=== PATIENT | male | born 1980 | race Caucasian/White ===

== ENCOUNTER 2019-04-06 13:39 | Emergency (ER) | payer SELFPAY ==
[2019-04-06] MEDS ORDERED: ASPIRIN 81 MG TABLET, CHEWABLE PO ONE (15:00)
[2019-04-06] MEDS ORDERED: NORMAL SALINE 1000 ML 1,000 ML IV ONE (15:02)
--- NOTE | 2019-04-06 15:02 | ER Document Report ---
ED Medical Screen (RME) - General Chief Complaint: Chest Pain Stated Complaint: CHEST PAIN Time Seen by Provider: 04/06/19 14:58 Primary Care Provider: CIHNG COLLAZO MD [Primary Care Provider] - Follow up as needed Notes: Patient presents complaining of left-sided chest pain for the past 2 weeks. Patient does report some mild shortness of breath and chronic cough that he attributes to smoking. Patient complains of left arm pain for the past 2 days. hx: Chest tube, ulcers I have greeted and performed a rapid initial assessment of this patient. A comprehensive ED assessment and evaluation of the patient, analysis of test results and completion of the medical decision making process will be conducted by additional ED providers. TRAVEL OUTSIDE OF THE [place] IN LAST 30 DAYS: No - Related Data Allergies/Adverse Reactions: No Known Allergies Allergy (Verified 04/06/19 13:45) Past Medical History Psychiatric Medical History: Reports: Hx Anxiety, Hx Depression Past Surgical History: Reports: Hx Orthopedic Surgery Physical Exam - Vital signs Vitals: Temp Pulse Resp BP Pulse Ox 98.6 F 107 H 18 162/98 H 98 04/06/19 13:41 04/06/19 13:41 04/06/19 13:41 04/06/19 13:41 04/06/19 13:41 - Respiratory Respiratory status: No respiratory distress Chest status: Nontender Breath sounds: Normal Chest palpation: Normal - Cardiovascular Rhythm: Tachycardia Heart sounds: S1 appreciated, S2 appreciated Course - Vital Signs Vital signs: Temp Pulse Resp BP Pulse Ox 98.6 F 107 H 18 162/98 H 98 04/06/19 13:41 04/06/19 13:41 04/06/19 13:41 04/06/19 13:41 04/06/19 13:41 Doctor's Discharge - Discharge Referrals: CHING COLLAZO MD [Primary Care Provider] - Follow up as needed
[2019-04-06 15:27] LABS: ABSOLUTE BASOPHILS # (AUTO) 0.1 10^3/uL (0.0-0.2); ABSOLUTE EOSINOPHILS # (AUTO) 0.4 10^3/uL (0.0-0.6); ABSOLUTE LYMPHOCYTES (AUTO) 2.7 10^3/uL (0.5-4.7); ABSOLUTE MONOCYTES (AUTO) 0.7 10^3/uL (0.1-1.4); ABSOLUTE NEUT (AUTO) 5.8 10^3/uL (1.7-8.2); EOSINOPHILS % (AUTO) 3.8 % (0-6); HEMATOCRIT 47.8 % (37.9-51.0); HEMOGLOBIN 16.5 g/dL (13.5-17.0); LYMPHOCYTES % (AUTO) 28.2 % (13-45); MEAN CORPUSCULAR HEMOGLOBIN 33.3 pg (27.0-33.4); MEAN CORPUSCULAR HGB CONC 34.6 g/dL (32.0-36.0); MEAN CORPUSCULAR VOLUME 96 fl (80-97); MONOCYTES % (AUTO) 7.6 % (3-13); PLATELET COUNT 293 10^3/uL (150-450); RED BLOOD COUNT 4.97 10^6/uL (4.35-5.55); RED CELL DISTRIBUTION WIDTH 12.7 % (11.5-14.0); SEGMENTED NEUTROPHILS % (AUTO) 59.4 % (42-78); TOTAL CELLS COUNTED % (AUTO) 100 %; WHITE BLOOD COUNT 9.7 10^3/uL (4.0-10.5)
[2019-04-06 15:48] LABS: ALBUMIN 5.1 g/dL (3.5-5.0); ALKALINE PHOSPHATASE 77 U/L (38-126); ANION GAP 11 (5-19); ASPARTATE AMINO TRANSFERASE 35 U/L (17-59); BILIRUBIN,DIRECT 0.4 mg/dL (0.0-0.4); BILIRUBIN,TOTAL 0.6 mg/dL (0.2-1.3); BLOOD UREA NITROGEN 15 mg/dL (7-20); CALCIUM 10.2 mg/dL (8.4-10.2); CARBON DIOXIDE 30 mmol/L (22-30); CHLORIDE 102 mmol/L (98-107); POTASSIUM 4.3 mmol/L (3.6-5.0); TOTAL PROTEIN 8.6 g/dL (6.3-8.2)
[2019-04-06 15:51] LABS: GLUCOSE 59 mg/dL (75-110)
--- NOTE | 2019-04-06 16:13 | RADIOLOGY REPORT (SQ) ---
EXAM DESCRIPTION: CHEST 2 VIEWS COMPLETED DATE/TIME: 04/06/2019 4:05 pm REASON FOR STUDY: cp, cough COMPARISON: None. TECHNIQUE: Frontal and lateral radiographic views of the chest acquired. NUMBER OF VIEWS: Two view. LIMITATIONS: None. FINDINGS: LUNGS AND PLEURA: No opacities, masses or pneumothorax. No pleural effusion. MEDIASTINUM AND HILAR STRUCTURES: No masses or contour abnormalities. HEART AND VASCULAR STRUCTURES: Heart normal size. No evidence for failure. BONES: No acute findings. HARDWARE: None in the chest. OTHER: No other significant finding. IMPRESSION: NO SIGNIFICANT RADIOGRAPHIC FINDING IN THE CHEST. TECHNICAL DOCUMENTATION: JOB ID: [id number] [email or web address]- All Rights Reserved Reading location - IP/workstation name: [email or web address]
--- NOTE | 2019-04-06 19:01 | EKG REPORT ---
SEVERITY:- BORDERLINE ECG - SINUS TACHYCARDIA PROBABLE LEFT ATRIAL ABNORMALITY : Confirmed by: Luis Craft MD 06-Apr-2019 19:00:23
--- NOTE | 2019-04-06 19:29 | ER Document Report ---
ED Cardiac - General Chief Complaint: Chest Pain Stated Complaint: CHEST PAIN Time Seen by Provider: 04/06/19 14:58 Primary Care Provider: [facility] [Provider Group] - Follow up in 3-5 days Notes: Patient is a 38-year-old male who presents the emergency department with a chief complaint of left lateral chest pain that has been going on for the past 2 weeks. He states that he has had some shortness of breath and about 2 days ago he started to have left arm pain. 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 He also has a history of anxiety, chest tube placement from trauma 4 years ago, and gastric ulcers. Patient is not currently on any medications. He is a current everyday smoker. TRAVEL OUTSIDE OF THE [place] IN LAST 30 DAYS: No - Related Data Allergies/Adverse Reactions: No Known Allergies Allergy (Verified 04/06/19 13:45) Past Medical History - Social History Smoking Status: Current Every Day Smoker Family History: Reviewed & Not Pertinent Patient has suicidal ideation: No Patient has homicidal ideation: No Psychiatric Medical History: Reports: Hx Anxiety, Hx Depression Past Surgical History: Reports: Hx Orthopedic Surgery Review of Systems - Review of Systems Notes: REVIEW OF SYSTEMS: CONSTITUTIONAL : Denies recent illness. Denies recent unintentional weight loss. Denies fever, chills, or sweats. EENT: Denies eye, ear, throat, or mouth pain, discharge, or symptoms. Denies nasal or sinus congestion. CARDIOVASCULAR: See HPI. RESPIRATORY: Denies shortness of breath, cough, congestion, difficulty breathing, or wheezing. GASTROINTESTINAL: Denies nausea, vomiting, and diarrhea. Denies abdominal pain. Denies constipation. GENITOURINARY: Denies difficulty urinating, burning, blood in urine, urgency or frequency. MUSCULOSKELETAL: Denies neck and back pain. Denies joint pain or swelling. SKIN: Denies rash, itchiness, or lesions HEMATOLOGIC : Denies easy bruising or bleeding. LYMPHATIC: Denies swollen, painful, enlarged glands. NEUROLOGICAL: Denies no numbness or tingling denies weakness. Denies headache. Denies altered mental status. Denies alteration in speech. PSYCHIATRIC: Denies stress, anxiety, alteration in sleep patterns, or depression. All other systems reviewed and negative. Physical Exam - Vital signs Vitals: Temp Pulse Resp BP Pulse Ox 98.6 F 107 H 18 162/98 H 98 04/06/19 13:41 04/06/19 13:41 04/06/19 13:41 04/06/19 13:41 04/06/19 13:41 - Notes Notes: PHYSICAL EXAMINATION: GENERAL: Appears well, healthy, well-nourished, no acute distress. HEAD: Normocephalic, atraumatic. EYES: PERRL, conjunctiva normal, all extraocular movements intact, sclera nonicteric ENT: Moist mucous membranes. NECK: Supple, no noticeable swelling, redness, rash. Normal range of motion. LUNGS: Equal breath sounds bilaterally and clear to auscultation. No wheezes rales or rhonchi. CARDIOVASCULAR: S1-S2, regular rate, regular rhythm. Radial pulses 2+, normal. ABDOMEN: Normoactive bowel sounds. Soft, nontender, no guarding, no rebound tenderness, and no masses palpated. EXTREMITIES: Normal strength and range of motion, no pitting or edema. No cyanosis. NEUROLOGICAL: Moves all extremities upon command. Strength 5/5 in all extremities. PSYCH: Normal mood, normal affect. SKIN: Warm, dry. No rash, lesions, ulcerations noted. Normal skin turgor. MSK: Mildly tender left lateral torso. Course - Re-evaluation Re-evalutation: 04/06/19 19:29 Patient's hematology is unremarkable. No anemia or leukocytosis noted. Chemistries are no hypoglycemia. I gave him 2 containers of grape juice to bring his glucose up. His troponin is negative. A second troponin is not indicated at this time, because I have a very low suspicion for the patient having a myocardial infarction. His chest x-ray is normal. At this time I had a lengthy conversation with the patient regards to his smoking and him not being on medications. He told me that he did not want to be prescribed medications anymore, because he rarely has early has any GERD symptoms. He also does not have any insurance, so this cristy him from seeing a primary care provider. I told him that I would put in a consult for case management in regards to him not having insurance. He is in agreement. Follow-up precautions were given. Verbal discharge instructions were given to the patient. They verbalized understanding. They are stable for discharge. HEART Score: History 0 ECG 0 Age 0 Risk Factors 1 Troponin 0 Total: 1 Chest pain in a patient without evidence of cardiac or other serious etiology on workup today. I discussed with patient that, based on their age, risk factors and emergency department testing today, the likelihood that their symptoms are related to a heart attack is very low (estimated risk of heart attack or over the next 30 days of less than 1%). The patient demonstrates decision making capacity and has verbalized an understanding of these risks to me. Based on this, the patient has chosen to follow-up as an outpatient. Usual chest pain return precautions reviewed. The patient states understanding and agreement with this plan. - Vital Signs Vital signs: Temp Pulse Resp BP Pulse Ox 98.6 F 55 L 17 147/98 H 100 04/06/19 19:48 04/06/19 19:48 04/06/19 19:48 04/06/19 19:48 04/06/19 19:48 - Laboratory Result Diagrams: 04/06/19 15:15 04/06/19 15:15 Laboratory results interpreted by me: 04/06/19 15:15 Glucose 59 L Total Protein 8.6 H Albumin 5.1 H - EKG Interpretation by Me Additional EKG results interpreted by me: 04/06/2019 13:45 Sinus tachycardia. Rate 110. CT 136; QRS 70; QT 316; QTc 428. No ST elevations or depressions. 04/06/19 19:32 Sinus rhythm. Rate 72. CT 148; QRS 70; QT 388; QTc 425. No ST elevations or depressions noted. Improved rate from previous EKG done earlier today. Discharge - Discharge Clinical Impression: Left arm pain Chest pain Qualifiers: Chest pain type: unspecified Qualified Code(s): R07.9 - Chest pain, unspecified Condition: Stable Disposition: HOME, SELF-CARE Additional Instructions: You were seen today in the emergency department for chest pain and left arm pain. You are not having a heart attack. Your labs are normal. Please follow- up with the [facility] in regards to this visit. You do not want medications, but if you do, please visit the [facility] and see if he can be placed on Carafate and Pepcid for your gastric ulcers. Pepcid you can buy [id number], but Carafate you need a prescription. If you develop shortness of breath, difficulty breathing, or have worsening symptoms, please return to the emergency department. Referrals: [facility] [Provider Group] - Follow up in 3-5 days
[2019-04-06 19:55] VITALS: BP 147/98
--- NOTE | 2019-04-06 23:35 | EKG REPORT ---
SEVERITY:- NORMAL ECG - SINUS RHYTHM : Confirmed by: Luis Craft MD 06-Apr-2019 23:35:10
== END 2019-04-06 19:55 | disposition home or self-care (01) ==
LOC: ER 13:39
DX: R07.9 Chest pain, unspecified (principal); M79.602 Pain in left arm; F17.200 Nicotine dependence, unspecified, uncomplicated
CPT/HCPCS: 93005; 99285; 96360; 36415; 85025; 80053; 84484; 71046; 93010; J7030